=== PATIENT | female | born 2000 | race Caucasian/White ===

== ENCOUNTER → 2020-03-12 20:26 | Observation (INO) ==
[2020-03-12 19:38] LABS: Basophils % 0.4 %
[2020-03-12 19:41] LABS: Basophils # 0.1 K/mcL (0.0-0.2); Eosinophils # 0.1 K/mcL (0.0-0.6); Eosinophils % 1.1 %; Hematocrit 35.5 % (35.3-44.9); Hemoglobin 11.3 g/dL (11.5-15.4); Immature Granulocytes % 1.7 % (0-4); Immature Platelets 2.5 % (1.1-6.1); Lymphocytes # 2.3 K/mcL (0.6-4.6); Lymphocytes % 19.9 %; Mean Corpuscular HGB Conc 31.8 g/dL (31.6-35.5); Mean Corpuscular Volume 81.6 fL (83.0-100.0); Mean Platelet Volume 9.5 fL (9.4-12.4); Monocytes # 0.8 K/mcL (0.0-1.3); Monocytes % 7.3 %; Neutrophils # 7.9 K/mcL (1.6-8.9); Red Blood Count 4.35 M/mcL (3.82-4.97); Red Cell Distribution Width 13.5 % (11.5-14.5); Segmented Neutrophils % 69.6 %; White Blood Count 11.4 K/mcL (4.3-11.1)
[2020-03-12 19:55] LABS: Protein/Creatinine Ratio,Urine 0.26 mg/mg (0.00-0.20)
[2020-03-12 20:03] LABS: Platelet Count 375 K/mcL (140-400)
[2020-03-12 20:08] LABS: Estimated Average Glucose 105 mg/dl; Hemoglobin A1C 5.3 %
[2020-03-12 20:19] LABS: Alanine Aminotransferase 14 Units/L (7-52); Aspartate Amino Transferase 24 Units/L (13-39); BUN/Creatinine Ratio 23 (6-26); Blood Urea Nitrogen 8 mg/dL (6-20); Lactate Dehydrogenase 263 Units/L (140-271); Uric Acid 3.4 mg/dL (2.3-7.6); eGFR For African Americans > 60 (> 60); eGFR For Non-African Americans > 60 (> 60)
== END | disposition home or self-care (01) ==
LOC: 1NENULAB
PROVIDERS: ADMIT Advanced Practice Midwife; ATTEND Advanced Practice Midwife

== ENCOUNTER 2020-07-07 08:01 | Observation (INO) ==
[2020-07-07 09:12] LABS: Bacteria,Urine Few per hpf (None-Few); Bilirubin,Urine Negative (Negative); Blood,Urine Small (Negative); Clarity,Urine Turbid (Clear); Color,Urine Yellow (Yellow); Glucose,Urine (UA) Normal (Normal); Hematocrit 34.9 % (35.3-44.9); Hemoglobin 11.2 g/dL (11.5-15.4); Ketones,Urine Negative (Negative); Leukocyte Esterase,Urine Moderate (Negative); Mean Corpuscular HGB Conc 32.1 g/dL (31.6-35.5); Mean Corpuscular Hemoglobin 25.9 pg (28.0-33.3); Mean Corpuscular Volume 80.6 fL (83.0-100.0); Mucus,Urine Few per lpf (None-Few); Nitrite,Urine Negative (Negative); PH,Urine 6.5 pH Units (5.0-8.0); Platelet Count 376 K/mcL (140-400); Protein,Urine 30 mg/dL (Neg-Trace); Red Blood Count 4.33 M/mcL (3.82-4.97); Red Cell Distribution Width 14.8 % (11.5-14.5); Specific Gravity,Urine 1.022 (1.010-1.025); Squamous Epithelial Cell,Urine Moderate per hpf (None-Few); Urobilinogen,Urine Normal (Normal); WBC,Urine 15-30 per hpf (0-3); White Blood Count 11.9 K/mcL (4.3-11.1)
[2020-07-07 09:20] LABS: Protein/Creatinine Ratio,Urine 0.28 mg/mg (0.00-0.20)
[2020-07-07 09:30] LABS: Alanine Aminotransferase 13 Units/L (7-52); Aspartate Amino Transferase 14 Units/L (13-39); BUN/Creatinine Ratio 23 (6-26); Blood Urea Nitrogen 10 mg/dL (6-20); Lactate Dehydrogenase 140 Units/L (140-271); Uric Acid 4.1 mg/dL (2.3-7.6); eGFR For African Americans > 60 (> 60); eGFR For Non-African Americans > 60 (> 60)
[2020-07-07 10:00] LABS: Eosinophils # 0.2 K/mcL (0.0-0.6); Lymphocytes # 2.6 K/mcL (0.6-4.6); Monocytes # 0.2 K/mcL (0.0-1.3); Neutrophils # 8.1 K/mcL (1.6-8.9); Platelet Estimate Normal (Normal)
== END 2020-07-07 10:07 | disposition home or self-care (01) ==
LOC: 1NENULAB
PROVIDERS: ADMIT Advanced Practice Midwife; ATTEND Advanced Practice Midwife

== ENCOUNTER 2020-07-08 17:39 | Observation (INO) ==
[2020-07-08] MEDS ORDERED: Ringers Solution, Lactated 1,000 ML IVC ONE (18:35)
== END 2020-07-08 19:17 | disposition home or self-care (01) ==
LOC: 1NENULAB
PROVIDERS: ADMIT Advanced Practice Midwife; ATTEND Advanced Practice Midwife

== ENCOUNTER 2020-07-10 15:07 | Observation (INO) ==
[2020-07-10 16:20] LABS: White Blood Count 10.3 K/mcL (4.3-11.1)
[2020-07-10 16:21] LABS: Basophils # 0.1 K/mcL (0.0-0.2); Basophils % 0.5 %; Eosinophils # 0.1 K/mcL (0.0-0.6); Eosinophils % 0.8 %; Hematocrit 34.8 % (35.3-44.9); Hemoglobin 11.1 g/dL (11.5-15.4); Immature Granulocytes % 4.3 % (0-4); Lymphocytes % 18.9 %; Mean Corpuscular HGB Conc 31.9 g/dL (31.6-35.5); Mean Corpuscular Hemoglobin 25.6 pg (28.0-33.3); Mean Corpuscular Volume 80.2 fL (83.0-100.0); Mean Platelet Volume 9.4 fL (9.4-12.4); Monocytes # 0.5 K/mcL (0.0-1.3); Monocytes % 5.2 %; Neutrophils # 7.3 K/mcL (1.6-8.9); Platelet Count 407 K/mcL (140-400); Red Blood Count 4.34 M/mcL (3.82-4.97); Segmented Neutrophils % 70.3 %
[2020-07-10 16:25] LABS: Protein/Creatinine Ratio,Urine 0.29 mg/mg (0.00-0.20)
[2020-07-10 16:37] LABS: Alanine Aminotransferase 17 Units/L (7-52); Aspartate Amino Transferase 16 Units/L (13-39); BUN/Creatinine Ratio 16 (6-26); Blood Urea Nitrogen 7 mg/dL (6-20); Lactate Dehydrogenase 119 Units/L (140-271); Uric Acid 4.2 mg/dL (2.3-7.6); eGFR For African Americans > 60 (> 60); eGFR For Non-African Americans > 60 (> 60)
== END 2020-07-10 17:20 | disposition home or self-care (01) ==
LOC: 1NENULAB
PROVIDERS: ADMIT Advanced Practice Midwife; ATTEND Advanced Practice Midwife

== ENCOUNTER 2020-07-13 08:01 | Inpatient (IN) ==
[2020-07-13] MEDS ORDERED: *HR* Nalbuphine 10 MG/ML AMPUL IV PRN (09:25)
[2020-07-13] MEDS ORDERED: Ondansetron 4 MG/2 ML VIAL IVP PRN (09:25)
[2020-07-13] MEDS ORDERED: Naloxone 0.4 MG/ML INJ IVP PRN (09:25)
[2020-07-13] MEDS ORDERED: Lidocaine 1% 20 ML MDV INFILT PRN (09:25)
[2020-07-13] MEDS ORDERED: Metoclopramide 10 MG/2 ML VIAL IVP PRN (09:25)
[2020-07-13] MEDS ORDERED: Famotidine 20 MG/2 ML VIAL IVP PRN (09:25)
[2020-07-13] MEDS ORDERED: Ringers Solution, Lactated 1,000 ML IVC SCH (09:30)
[2020-07-13] MEDS: miSOPROStoL 25 MCG TABLET VG PRN ×2 (09:42→14:01)
[2020-07-13 10:57] LABS: Hematocrit 33.1 % (35.3-44.9); Hemoglobin 10.7 g/dL (11.5-15.4); Mean Corpuscular HGB Conc 32.3 g/dL (31.6-35.5); Mean Corpuscular Hemoglobin 26.2 pg (28.0-33.3); Mean Corpuscular Volume 80.9 fL (83.0-100.0); Mean Platelet Volume 9.2 fL (9.4-12.4); Platelet Count 374 K/mcL (140-400); Red Blood Count 4.09 M/mcL (3.82-4.97); Red Cell Distribution Width 15.2 % (11.5-14.5); White Blood Count 10.3 K/mcL (4.3-11.1)
[2020-07-13 11:23] LABS: Eosinophils # 0.2 K/mcL (0.0-0.6); Lymphocytes # 1.4 K/mcL (0.6-4.6); Monocytes # 0.6 K/mcL (0.0-1.3); Neutrophils # 7.8 K/mcL (1.6-8.9); Platelet Estimate Normal (Normal)
[2020-07-13 12:35] LABS: Amphetamine Screen,Urine Negative ng/mL (Cutoff=1000); Barbiturate Screen,Urine Negative ng/mL (Cutoff=200); Benzodiazepines Screen,Urine Negative ng/mL (Cutoff=200); Cannabinoid Screen,Urine Negative ng/mL (Cutoff = 50); Cocaine Screen,Urine Negative ng/mL (Cutoff= 300); Opiate Screen,Urine Negative ng/mL (Cutoff=300); Phencyclidine Screen,Urine Negative ng/mL (Cutoff=25)
[2020-07-14] MEDS ORDERED: Oxytocin 20 units/ LR 1000 mL 20 UNIT/1,000 ML BAG IVC SCH (00:15)
[2020-07-14] MEDS ORDERED: miSOPROStoL 25 MCG TABLET PO ONE (18:30)
[2020-07-14] MEDS ORDERED: ceFAZolin 3,000 MG in 0.9 % Sodium Chloride 100 ML IVPB ONE (23:31)
[2020-07-14] MEDS ORDERED: Azithromycin 500 MG in 0.9 % Sodium Chloride 250 ML IVPB ONE (23:32)
[2020-07-15] MEDS ORDERED: *HR* OxyCODONE Immed Rel 5 MG TABLET PO PRN (00:24)
[2020-07-15] MEDS ORDERED: *HR* FentaNYL (PF) 100 MCG/2 ML VIAL ONE (00:57)
[2020-07-15] MEDS ORDERED: *HR* Morphine Sulfate/PF 10 MG/10 ML AMPUL ONE (00:57)
[2020-07-15] MEDS ORDERED: Ondansetron 4 MG/2 ML VIAL ONE (01:01)
[2020-07-15] MEDS ORDERED: Acetaminophen IV 1,000 MG/100 ML BAG IVPB ONE (01:33)
[2020-07-15] MEDS ORDERED: EPHEDrine 50 MG/ML VIAL ONE (02:06)
[2020-07-15] MEDS ORDERED: Ketorolac 30 MG/ML VIAL ONE (02:12)
[2020-07-15] MEDS ORDERED: Oxytocin 20 units/ LR 1000 mL 20 UNIT/1,000 ML BAG IVC SCH (05:10)
[2020-07-15] MEDS ORDERED: Rho Immune Globulin 1,500 UNIT SYRINGE IM ONE (05:10)
[2020-07-15] MEDS: Acetaminophen 325 MG TABLET PO SCH ×3 (05:29→18:42)
[2020-07-15] MEDS ORDERED: Ondansetron 4 MG/2 ML VIAL IVP PRN (06:00)
[2020-07-15] MEDS ORDERED: Metoclopramide 10 MG/2 ML VIAL IVP PRN (06:00)
[2020-07-15 07:30] LABS: Adenovirus Not Detected (Not Detect); Bordetella Pertussis Not Detected (Not Detect); Chlamydophila pneumoniae Not Detected (Not Detect); Coronavirus 229E Not Detected (Not Detect); Coronavirus HKU1 Not Detected (Not Detect); Coronavirus NL63 Not Detected (Not Detect); Coronavirus OC43 Not Detected (Not Detect); Human Metapneumovirus Not Detected (Not Detect); Human Rhinovirus/Enterovirus Not Detected (Not Detect); Influenza A Subtype 2009 H1 Not Detected (Not Detect); Influenza B Not Detected (Not Detect); Mycoplasma pneumoniae Not Detected (Not Detect); Parainfluenza Virus 1 Not Detected (Not Detect); Parainfluenza Virus 2 Not Detected (Not Detect); Parainfluenza Virus 3 Not Detected (Not Detect); Parainfluenza Virus 4 Not Detected (Not Detect); Respiratory Syncytial Virus Not Detected (Not Detect); SARS-CoV-2 Not Detected (Not Detect)
[2020-07-15] MEDS: Prenatal Vit/FA 1 EACH TABLET PO SCH (07:43)
[2020-07-15] MEDS: Simethicone 80 MG TAB.CHEW PO SCH ×3 (07:44→20:59)
[2020-07-15] MEDS ORDERED: Ketorolac 30 MG/ML VIAL IVP ONE (08:00)
[2020-07-15] MEDS: *HR* Enoxaparin 80 MG/0.8 ML SYRINGE SQ SCH (14:05)
[2020-07-15] MEDS: Ibuprofen 600 MG TABLET PO SCH (16:52)
[2020-07-16] MEDS: *HR* OxyCODONE/APAP 5/325 TABLET PO PRN ×3 (01:40→17:06)
[2020-07-16] MEDS: *HR* Enoxaparin 80 MG/0.8 ML SYRINGE SQ SCH ×2 (01:42→17:05)
[2020-07-16] MEDS: Ibuprofen 600 MG TABLET PO SCH ×3 (04:22→17:05)
[2020-07-16 04:44] LABS: Basophils % 0.2 %; Eosinophils # 0.1 K/mcL (0.0-0.6); Eosinophils % 1.5 %; Hematocrit 28.7 % (35.3-44.9); Immature Granulocytes % 2.5 % (0-4); Lymphocytes # 1.8 K/mcL (0.6-4.6); Mean Corpuscular Hemoglobin 25.5 pg (28.0-33.3); Mean Corpuscular Volume 82.2 fL (83.0-100.0); Mean Platelet Volume 9.2 fL (9.4-12.4); Monocytes # 0.9 K/mcL (0.0-1.3); Monocytes % 10.1 %; Platelet Count 308 K/mcL (140-400); Red Blood Count 3.49 M/mcL (3.82-4.97); Red Cell Distribution Width 15.5 % (11.5-14.5); Segmented Neutrophils % 65.7 %; White Blood Count 9.1 K/mcL (4.3-11.1)
[2020-07-16 04:46] LABS: Hemoglobin 8.9 g/dL (11.5-15.4)
[2020-07-16] MEDS: Prenatal Vit/FA 1 EACH TABLET PO SCH (09:32)
[2020-07-16] MEDS: Simethicone 80 MG TAB.CHEW PO SCH ×2 (09:32→17:05)
[2020-07-16] MEDS: Acetaminophen 325 MG TABLET PO SCH ×3 (09:35→20:04)
[2020-07-17] MEDS: Simethicone 80 MG TAB.CHEW PO SCH ×2 (00:34→09:45)
[2020-07-17] MEDS: *HR* OxyCODONE/APAP 5/325 TABLET PO PRN (02:44)
[2020-07-17] MEDS: Ibuprofen 600 MG TABLET PO SCH ×2 (02:44→09:45)
[2020-07-17] MEDS: *HR* Enoxaparin 80 MG/0.8 ML SYRINGE SQ SCH (05:03)
[2020-07-17] MEDS: Acetaminophen 325 MG TABLET PO SCH (05:03)
[2020-07-17 08:01] VITALS: BP 132/82
[2020-07-17] MEDS: Prenatal Vit/FA 1 EACH TABLET PO SCH (09:45)
== END 2020-07-17 13:45 | disposition home or self-care (01) | DRG 540 ==
LOC: 1NENULAB 08:01 → 1NENUOBS 07-15 04:42
PROVIDERS: ADMIT Advanced Practice Midwife; ATTEND Advanced Practice Midwife

== ENCOUNTER 2021-05-20 16:15 | Observation (INO) ==
[2021-05-20 17:33] LABS: Bilirubin,Urine Negative (Negative); Blood,Urine Negative (Negative); Clarity,Urine Turbid (Clear); Color,Urine Light-Yellow (Yellow); Glucose,Urine (UA) Normal (Normal); Ketones,Urine Negative (Negative); Leukocyte Esterase,Urine Large (Negative); Mucus,Urine Few per lpf (None-Few); Nitrite,Urine Negative (Negative); PH,Urine 6.5 pH Units (5.0-8.0); Protein,Urine Negative (Neg-Trace); RBC,Urine 0-3 per hpf (0-3); Specific Gravity,Urine 1.015 (1.010-1.025); Squamous Epithelial Cell,Urine Moderate per hpf (None-Few); Urobilinogen,Urine Normal (Normal); WBC,Urine 30-50 per hpf (0-3)
[2021-05-20 17:37] LABS: Basophils # 0.1 K/mcL (0.0-0.2); Basophils % 0.5 %; Eosinophils # 0.2 K/mcL (0.0-0.6); Eosinophils % 1.7 %; Hematocrit 39.9 % (35.3-44.9); Hemoglobin 12.4 g/dL (11.5-15.4); Lymphocytes # 2.4 K/mcL (0.6-4.6); Lymphocytes % 21.9 %; Mean Corpuscular HGB Conc 31.1 g/dL (31.6-35.5); Mean Corpuscular Hemoglobin 24.1 pg (28.0-33.3); Mean Corpuscular Volume 77.6 fL (83.0-100.0); Mean Platelet Volume 9.1 fL (9.4-12.4); Monocytes # 0.4 K/mcL (0.0-1.3); Monocytes % 3.4 %; Neutrophils # 7.7 K/mcL (1.6-8.9); Platelet Count 479 K/mcL (140-400); Red Blood Count 5.14 M/mcL (3.82-4.97); Red Cell Distribution Width 14.5 % (11.5-14.5); Segmented Neutrophils % 71.5 %; White Blood Count 10.7 K/mcL (4.3-11.1)
[2021-05-20 17:44] LABS: Estimated Average Glucose 114 mg/dl; Hemoglobin A1C 5.6 %
[2021-05-20 17:46] LABS: Acetaminophen < 10 mcg/mL (10-20); BUN/Creatinine Ratio 15 (6-26); Blood Urea Nitrogen 10 mg/dL (6-20); Calcium 9.2 mg/dL (8.6-10.3); Carbon Dioxide 26 mEq/L (23-29); Chloride 101 mEq/L (98-107); Ethanol < 10 mg/dL (Less than 10); Glucose 117 mg/dL (70-105); Osmolality,Calculated 278 (280-300); Potassium 3.7 mEq/L (3.5-5.1); Salicylate < 2.5 mg/dL (15.0-30.0); Sodium 134 mEq/L (136-145); eGFR For African Americans > 60 (> 60); eGFR For Non-African Americans > 60 (> 60)
[2021-05-20] MEDS ORDERED: Tdap (Boostrix) Vaccine 0.5 ML SYRINGE IM ONE (17:47)
[2021-05-20 18:23] LABS: Amphetamine Screen,Urine Negative ng/mL (Cutoff=1000); Barbiturate Screen,Urine Negative ng/mL (Cutoff=200); Benzodiazepines Screen,Urine Negative ng/mL (Cutoff=200); Cannabinoid Screen,Urine Positive ng/mL (Cutoff = 50); Cocaine Screen,Urine Negative ng/mL (Cutoff= 300); Opiate Screen,Urine Negative ng/mL (Cutoff=300); Phencyclidine Screen,Urine Negative ng/mL (Cutoff=25)
[2021-05-20 22:35] LABS: Influenza A PCR Negative (Negative); Influenza B PCR Negative (Negative); Resp. Syncytial Virus PCR Negative (Negative)
[2021-05-20 22:36] LABS: SARS-CoV-2 by PCR (In House) Negative (Negative)
[2021-05-20] MEDS ORDERED: traZODone 50 MG TABLET PO PRN (23:20)
[2021-05-20] MEDS ORDERED: *HR* LORazepam 2 MG/ML VIAL IM PRN (23:20)
[2021-05-20] MEDS ORDERED: Haloperidol Lactate 5 MG/ML VIAL IM PRN (23:20)
[2021-05-20] MEDS ORDERED: haloperidoL 5 MG TABLET PO PRN (23:20)
[2021-05-20] MEDS ORDERED: hydrOXYzine pamoate 25 MG CAPSULE PO PRN (23:20)
[2021-05-20] MEDS ORDERED: *HR* LORazepam 1 MG TABLET PO PRN (23:20)
[2021-05-20] MEDS ORDERED: Acetaminophen 325 MG TABLET PO PRN (23:20)
[2021-05-21 00:51] VITALS: O2SAT 98
[2021-05-21] MEDS ORDERED: Mag Hydrox/Al Hydrox/Simeth 30 ML UDC PO PRN (08:06)
[2021-05-21] MEDS ORDERED: MOM Conc 10 ML UD.LIQ PO PRN (08:06)
[2021-05-21 09:57] VITALS: BP 144/91; PULSE 124; TEMP 97
== END 2021-05-21 15:45 | disposition home or self-care (01) ==
LOC: EMEROOARM 16:15 → INTOOBSV 23:02 → 1ANU 23:02
PROVIDERS: ADMIT Psychiatry & Neurology Psychiatry; ATTEND Psychiatry & Neurology Psychiatry